=== PATIENT | female | born 1960 | race Caucasian/White ===

== ENCOUNTER → 2016-08-14 | Outpatient (CLI) | payer MEDICARE, OTHER | LOC: HEART 5 09:48 | DX: R00.2 Palpitations (principal) ==

== ENCOUNTER → 2016-09-25 | Outpatient (CLI) | payer MEDICARE, OTHER | LOC: CT 10:50 | DX: F17.210 Nicotine dependence, cigarettes, uncomplicated (principal); J43.9 Emphysema, unspecified | CPT/HCPCS: G0297 ==

== ENCOUNTER → 2016-10-20 | Outpatient (CLI) | payer MEDICARE, OTHER | LOC: HEART 5 09:13 | DX: J43.9 Emphysema, unspecified (principal) | CPT/HCPCS: 94060; 94729 ==

== ENCOUNTER → 2016-10-26 | Outpatient (CLI) | payer MEDICARE, OTHER | LOC: US 10:30 | DX: I73.9 Peripheral vascular disease, unspecified (principal); I70.90 Unspecified atherosclerosis | CPT/HCPCS: 93922; 93925 ==

== ENCOUNTER 2020-10-03 11:43 | Emergency (ER) | payer MEDICARE, OTHER ==
[~2020-10-03 11:43] MED LIST: ALPRAZOLAM0.5 MG PO; ANIMAL SHAPES1 EAC2 PO; BAYER CHEWABLE81 MG PO; CITALOPRAM HBR10 MG PO; HABITROL 21 MG P1 EA TD; HYDROCODON-ACE1 EAC2 PO; IBUPROFEN800 MG PO; LIPITOR TAB 1010 MG PO; MECLIZINE HCL25 M1 PO; PERCOCET 5/325 T1 EA PO; TYLENOL EXTRA500 MG PO; ZANAFLEX4 M1 PO; ZANTAC150 MG PO
[2020-10-03] MEDS ORDERED: HYDROCODON-ACE1 EAC4 PO (14:26)
== END 2020-10-03 14:55 | disposition home or self-care (01) ==
LOC: ER1 11:43
DX: S82.434A Nondisplaced oblique fracture of shaft of right fibula, initial encounter for closed fracture (principal); S82.831A Other fracture of upper and lower end of right fibula, initial encounter for closed fracture; J44.9 Chronic obstructive pulmonary disease, unspecified; X50.1XXA Overexertion from prolonged static or awkward postures, initial encounter; Y92.009 Unspecified place in unspecified non-institutional (private) residence as the place of occurrence of the external cause
CPT/HCPCS: 29515; 73590; 73610; 99283

== ENCOUNTER → 2021-01-27 | Outpatient (CLI) | payer MEDICARE, OTHER ==
[~2021-01-27] MED LIST changes: +HYDROCODON-ACE1 EAC4 PO
== END ==
LOC: KOH-I 12:29
DX: J20.9 Acute bronchitis, unspecified (principal)
CPT/HCPCS: 71046

== ENCOUNTER → 2021-05-05 | Outpatient (CLI) | payer MEDICARE, OTHER | LOC: RAD 12:31 | DX: J20.9 Acute bronchitis, unspecified (principal) | CPT/HCPCS: 71046 ==

== ENCOUNTER → 2021-07-05 | Outpatient (CLI) | payer MEDICARE, OTHER | LOC: KOH-I 13:47 | DX: F17.210 Nicotine dependence, cigarettes, uncomplicated (principal) | CPT/HCPCS: 71271 ==

== ENCOUNTER → 2021-11-15 | Outpatient (CLI) | payer MEDICARE, OTHER | LOC: MAMO 10:30 | DX: Z12.31 Encounter for screening mammogram for malignant neoplasm of breast (principal); Z78.0 Asymptomatic menopausal state; M85.88 Other specified disorders of bone density and structure, other site | CPT/HCPCS: 77063; 77067; 77080 ==

== ENCOUNTER → 2021-12-15 | Outpatient (CLI) | payer MEDICARE, OTHER | LOC: MAMO 13:22 | DX: R92.8 Other abnormal and inconclusive findings on diagnostic imaging of breast (principal); N63.42 Unspecified lump in left breast, subareolar | CPT/HCPCS: 76641-LT; 77065; G0279 ==